=== PATIENT | female | born 1980 | race American Indian/Alaskan Native ===

== ENCOUNTER 2018-09-19 16:43 | Emergency (ER) | payer OTHER ==
--- NOTE | 2018-09-19 16:54 | PDOC ---
History of Present Illness - General Stated Complaint: CHEST PAIN Time Seen by Provider: 09/19/18 16:53 History Source: Patient Exam Limitations: No Limitations - History of Present Illness Initial Comments: Pt is a 38 yo F, with PMH of thyroidectomy, who is presenting via EMS with complaints of intermittent L-sided chest pain. Pt states the pain started while she was at work writing at the desk (non-exertional). The pain lasted today for about 3 minutes and improved after she took 81 mg PO aspirin. EMS provided additional 162 mg aspirin, which resolved the pain, and she has no current complaints at this time. The pain was not associated with any n/v or diaphoresis. The pt has had similar pain before which resolved after 81 mg PO aspirin, and is usually non-exertional in nature. The pt denies any new lifting or straining at work. The pt has been up during the night studying for a test and increased stress at work, but denies any increased caffeine intake. Pt denies any fevers/chills, headache, vision changes, syncope, palpitations, SOB, nausea/vomiting, abdominal pain, urinary symptoms, diarrhea/constipation, or leg swelling. Social: Pt denies any cigarette, alcohol, or drug use. Pt denies any recent travel or sick contacts. Surgical: . Family: no relevant history. PCP: Dr. Stark [facility] 09/19/18 18:00 Past History - Travel Traveled outside of the country in the last 30 days: No Close contact w/someone who was outside of country & ill: No - Past Medical History Allergies/Adverse Reactions: Allergies Allergy/AdvReac Type Severity Reaction Status Date / Time No Known Allergies Allergy Verified 09/19/18 17:16 Home Medications: Ambulatory Orders NK [No Known Home Medication] 09/19/18 Cardiac Disorders: No Hx Myocardial Infarction: No Diabetes: No HTN: No Hypercholesterolemia: No Thyroid Disease: Yes (thyroidectomy) - Surgical History Cardiac Surgery: No Comments:: thyroidectomy 09/19/18 17:47 Review of Systems - Review of Systems Able to Perform ROS?: Yes Is the patient limited Mongolian proficient: No Constitutional: Yes: Weight Stable. No: Chills, Diaphoresis, Fever, Loss of Appetite, Malaise, Weakness HEENTM: No: Blurred Vision, Double Vision, Nose Pain, Nose Congestion, Throat Pain, Throat Swelling Respiratory: No: Cough, Orthopnea, Shortness of Breath, Wheezing Cardiac (ROS): Yes: See HPI, Chest Pain. No: Edema, Irregular Heart Rate, Lightheadedness, Palpitations, Syncope, Chest Tightness ABD/GI: No: Constipated, Diarrhea, Nausea, Poor Appetite, Poor Fluid Intake, Vomiting, Abdominal cramping : No: Burning, Dysuria, Pain, Urgency Musculoskeletal: No: Back Pain, Joint Pain, Muscle Pain, Muscle Weakness Integumentary: No: Rash Neurological: No: Headache, Numbness, Paresthesia, Tingling, Weakness, Unsteady Gait, Ataxia, Dizziness Psychiatric: No: Sleep Pattern Change, Change in Appetite Endocrine: No: Increased Urine, Change in Weight Hematologic/Lymphatic: No: Anemia, Blood Clots, Easy Bleeding, Easy Bruising All Other Systems: Reviewed and Negative *Physical Exam - Physical Exam Comments: Vitals stable, pt afebrile. Pt in NAD, normal body habitus, ambulatory in the ED. PE showed pt alert and oriented. religious education coordinator generally intact, muscular strength and sensation intact. Head normocephalic, atraumatic. Eyes PERRLA, EOMI. Oropharynx without erythema or exudates, no LAD b/l. No nasal congestion, hearing intact. Clear heart sounds, S1/S2, no JVD, b/l pedal edema, or heart murmur. Reproducible chest wall tenderness over lateral chest wall near axilla. No axillary LN enlargement. No breast tenderness. Clear lung sounds, no respiratory distress, wheezes, crackles, or accessory muscle use. No abdominal or CVA tenderness to palpation, no rebound, no guarding. Abdomen soft, non-distended, and with normoactive bowel sounds. Skin without jaundice or rash. 09/19/18 17:53 ED Treatment Course - LABORATORY CBC & Chemistry Diagram: 09/19/18 17:47 09/19/18 17:47 Medical Decision Making - Medical Decision Making Pt was seen at bedside, also will be seen by attending Dr. Mirza. Pt presenting via EMS with complaints of intermittent L-sided chest pain. Pt states the pain started while she was at work writing at the desk (non- exertional). The pain lasted today for about 3 minutes and improved after she took 81 mg PO aspirin. EMS provided additional 162 mg aspirin, which resolved the pain, and she has no current complaints at this time. The pain was not associated with any n/v or diaphoresis. The pt has had similar pain before which resolved after 81 mg PO aspirin, and is usually non-exertional in nature. The pt denies any new lifting or straining at work. The pt has been up during the night studying for a test and increased stress at work, but denies any increased caffeine intake. Pt denies any fevers/chills, headache, vision changes , syncope, palpitations, SOB, nausea/vomiting, abdominal pain, urinary symptoms , diarrhea/constipation, or leg swelling. Considering angina/ACS vs MSK pain vs costochondritis vs stress/anxiety vs electrolyte imbalance causing muscle spasm. Ordered work-up including CBC, CMP, cardiac profile, ECG, and serum test. Pt denied further pain control at this time. Will continue to reassess pt and monitor for symptomatic improvement. ECG: NSR, intervals WNL (HR 71, SC 148, QTc 439). TWI in V2, no prior ECG for comparison. No significant ST segment changes. 09/19/18 17:42 Mild WBC elevation (12.4), pt afebrile. CMP WNL, first troponin <.02 with no ECG changes. 2nd troponin to be drawn at 8:45 pm, nursing staff aware. Serum test negative. Pt will be taken for chest x-ray. Pt signed out to night team. 09/19/18 18:51 *DC/Admit/Observation/Transfer Diagnosis at time of Disposition: Chest pain Qualifiers: Chest pain type: unspecified Qualified Code(s): R07.9 - Chest pain, unspecified - Discharge Dispostion Condition at time of disposition: Stable - Referrals - Patient Instructions - Post Discharge Activity
--- NOTE | 2018-09-19 17:06 | PDOC ---
Attending Attestation - Resident Resident Name: PatrickMorena - ED Attending Attestation I have performed the following: I have examined & evaluated the patient, The case was reviewed & discussed with the resident, I agree w/resident's findings & plan, Exceptions are as noted - HPI HPI: 09/19/18 18:17 This 38 yo female has had intermittent left sided chest pain for a couple months but it became more pronounced today. No associated symptoms. - Physicial Exam PE: 09/19/18 18:18 wnwd 38 yo female with L sided chest discomfort head ncat neck no bruits,no jvd lungs cta b/l cvs [id number] abd nontender,no guarding no cva tenderness skin warm and dry, no rashes, no vesicles ext no edema neuro axox3,ambulatory, no gross focal neuro deficits psych appropriate - Medical Decision Making 09/19/18 17:06 ekg NSR @ 71 bpm 09/19/18 17:25 38 thyroidectomy intermettnet L sided cp that started today,studying L sided for couple months got asa 81mf then EMS gave her 162mg ASA 09/19/18 18:21 labs reviewed nl cbc, first troponin is negative <Micaela Mirza - Last Filed: 09/19/18 18:20> - HPI HPI: 09/19/18 18:24 The patient is a 38 year old female with no significant past medical history who presents to the emergency department with left sided chest pain since earlier today. The patient reports that she was at work today when she began to experience her chest pain. She states that she was sitting down at a desk when it began and it lasted about 3 minutes. She states that her chest pain has been intermittent for the past month but she reports that when she gets that pain it usually goes away with use of aspirin. The patient states that today it did not dissolve with aspirin. The patient denies any heavy lifting. She endorses some current stressors at work and with studying for an upcoming exam. The patient denies any other symptoms or complaints. - Physicial Exam PE: 09/19/18 18:24 GENERAL: Well-appearing, well-nourished. No apparent distress. HEENT: Normocephalic, atraumatic. PERRL, EOM intact. CARDIOVASCULAR: Normal S1, S2. Regular rate and rhythm. PULMONARY: Clear to auscultation bilaterally. ABDOMEN: Soft, non-distended, non-tender. EXTREMITIES: Normal ROM in all four extremities. No gross deformities. SKIN: Warm, dry. No rash NEUROLOGICAL: No focal neurological deficits. <Chintan Lindo - Last Filed: 09/19/18 18:26> Attestations - Attestations 09/19/18 18:26 Documentation prepared by Chintan Lindo, acting as medical office asst for Micaela Mirza MD. <Chintan Lindo - Last Filed: 09/19/18 18:26>
[2018-09-19 17:16] VITALS: BP 136/84; TEMP 99.5; BMI 29.6
[2018-09-19 17:57] LABS: EOS % 1.6 % (0-4.5); HEMATOCRIT 34.3 % (32.4-45.2); HEMOGLOBIN 10.9 GM/dL (10.7-15.3); LYMPH % 25.6 % (8-40); MCH 21.6 pg (25.7-33.7); MCHC 31.8 g/dl (32.0-36.0); MEAN CELL VOLUME 67.9 fl (80-96); MEAN PLT VOLUME 8.9 fl (7.5-11.1); MONO % 6.7 % (3.8-10.2); NEUT % 65.1 % (42.8-82.8); PLATELET COUNT 238 K/MM3 (134-434); RBC 5.06 M/mm3 (3.60-5.2); RDW 18.8 % (11.6-15.6); WHITE BLOOD COUNT 12.4 K/mm3 (4.0-10.0)
[2018-09-19 18:19] LABS: ALBUMIN 3.6 g/dl (3.4-5.0); ALK PHOS 87 U/L (45-117); ANION GAP 8 MMOL/L (8-16); BILIRUBIN,TOTAL 0.2 mg/dL (0.2-1); BLOOD UREA NITROGEN 10 mg/dL (7-18); CALCIUM 8.5 mg/dL (8.5-10.1); CHLORIDE 106 mmol/L (98-107); CO2 24 mmol/L (21-32); CREATININE 0.7 mg/dL (0.55-1.3); GLUCOSE,RANDOM 99 mg/dL (74-106); SGOT/AST 26 U/L (15-37); SGPT/ALT 28 U/L (13-61); SODIUM 139 mmol/L (136-145); TOT PROT 7.6 g/dl (6.4-8.2)
--- NOTE | 2018-09-19 21:28 | PDOC ---
*Physical Exam - Vital Signs Last Vital Signs Temp Pulse Resp BP Pulse Ox 99.5 F 73 18 136/84 98 09/19/18 17:12 09/19/18 17:21 09/19/18 17:12 09/19/18 17:12 09/19/18 17:21 ED Treatment Course - LABORATORY CBC & Chemistry Diagram: 09/19/18 17:47 09/19/18 17:47 - ADDITIONAL ORDERS Additional order review: Laboratory Results 09/19/18 09/19/18 09/19/18 20:45 17:47 17:47 Sodium 139 Potassium 4.0 Chloride 106 Carbon Dioxide 24 Anion Gap 8 BUN 10 Creatinine 0.7 Creat Clearance w eGFR 93.16 Random Glucose 99 Calcium 8.5 Total Bilirubin 0.2 AST 26 ALT 28 Alkaline Phosphatase 87 Creatine Kinase 164 Creatine Kinase Index 1.0 CK-MB (CK-2) 1.7 Troponin I < 0.02 < 0.02 Total Protein 7.6 Albumin 3.6 Serum , Qual Negative 09/19/18 17:47 RBC 5.06 MCV 67.9 L MCHC 31.8 L RDW 18.8 H MPV 8.9 Neutrophils % 65.1 Lymphocytes % 25.6 Monocytes % 6.7 Eosinophils % 1.6 Basophils % 1.0 *DC/Admit/Observation/Transfer Diagnosis at time of Disposition: Chest pain Qualifiers: Chest pain type: unspecified Qualified Code(s): R07.9 - Chest pain, unspecified - Discharge Dispostion Condition at time of disposition: Stable Decision to Admit order: No - Referrals Referrals: Emerson Stark MD [Primary Care Provider] - - Patient Instructions Printed Discharge Instructions: DI for Atypical Chest Pain Additional Instructions: Come back to the emergency department for any new, worsening or concerning symptom. Follow up with your primary care provider within the week - Post Discharge Activity
[2018-09-19 21:45] VITALS: PULSE 84
--- NOTE | 2018-09-20 12:28 | EKG ---
Test Reason : Blood Pressure : / mmHG Vent. Rate : 071 BPM Atrial Rate : 071 BPM P-R Int : 148 ms QRS Dur : 090 ms QT Int : 404 ms P-R-T Axes : 045 052 026 degrees QTc Int : 439 ms NORMAL SINUS RHYTHM NORMAL ECG NO PREVIOUS ECGS AVAILABLE Confirmed by NIKI CHANDLER, ENID ([id number]) on 09/20/2018 12:28:23 PM Referred By: Confirmed By:ENID PRINCE MD
== END 2018-09-19 21:47 | disposition home or self-care (01) ==
LOC: JER 16:43
DX: R07.9 Chest pain, unspecified (principal); E89.0 Postprocedural hypothyroidism
CPT/HCPCS: 36415; 71046-TC-FY; 80053; 82550; 82553; 84484; 84703; 85025; 93005; 93010; 99284-25